=== PATIENT | male | born 1950 | race Caucasian/White ===

== ENCOUNTER 2017-04-23 11:28 | Emergency (ER) | payer OTHER ==
[~2017-04-23] VITALS: Ht 175.2 cm; Wt 124.7 kg
[~2017-04-23 11:28] MED LIST: AUGMENTIN 875 M1 TAB PO; CLARITIN10 MG PO; NAPROSYN500 MG PO; VICODIN 5/500 505 MG PO
[2017-04-23 11:46] VITALS: BP 100/60
== END 2017-04-23 13:26 | disposition home or self-care (01) ==
LOC: ED 11:28
DX: R51 Headache (principal); Z90.49 Acquired absence of other specified parts of digestive tract